=== PATIENT | female | born 1940 | race Caucasian/White ===

== ENCOUNTER 2017-02-23 13:34 | Emergency (ER) | payer OTHER, MEDICARE ==
[~2017-02-23] VITALS: Ht 160 cm; Wt 68.0 kg
[2017-02-23] MEDS ORDERED: PRILOSEC 20 MG20 MG PO (13:50)
[2017-02-23] MEDS ORDERED: ASPIR 8181 MG PO (13:50)
[2017-02-23] MEDS ORDERED: TUMS PO (13:50)
[2017-02-23 14:00] LABS: URINE BILIRUBIN NEGATIVE (Negative); URINE BLOOD 2+ (Negative); URINE COLOR YELLOW; URINE GLUCOSE-RANDOM* NEGATIVE (Negative); URINE KETONES NEGATIVE (Negative); URINE LEUKOCYTES-REFLEX 2+ (Negative); URINE PROTEIN (DIPSTICK) TRACE (Negative); URINE SPECIFIC GRAVITY 1.025 (1.003-1.035); URINE UROBILINOGEN 0.2 E.U./dl (0.2-1.0)
[2017-02-23 14:09] LABS: CASTS None Seen /LPF (None Seen); CRYSTALS None Seen /LPF (None Seen); URINE WBC-REFLEX >25 Many /HPF (0-5)
[2017-02-23 14:10] LABS: SQUAMOUS 0-3 Few /LPF (0-3)
[2017-02-23 14:11] LABS: URINE RBC None Seen /HPF (0-2)
[2017-02-23] MEDS ORDERED: PHENAZOPYRIDIN200 M2 PO (14:29)
[2017-02-23] MEDS ORDERED: BACTRIM DS TAB1 EACH PO (14:29)
[2017-02-23 14:44] VITALS: BP 140/68
== END 2017-02-23 14:55 | disposition home or self-care (01) ==
LOC: ER 13:34
PROVIDERS: Emergency Medicine
DX: N39.0 Urinary tract infection, site not specified (principal); Z90.710 Acquired absence of both cervix and uterus; Z88.0 Allergy status to penicillin; Z88.6 Allergy status to analgesic agent

== ENCOUNTER 2017-03-19 07:05 | Emergency (ER) | payer OTHER, MEDICARE ==
[~2017-03-19] VITALS: Ht 160 cm; Wt 63.5 kg
--- NOTE | ~2017-03-19 | EKG ---
[place] [address] [facility] [place] [address] ELECTROCARDIOGRAM REPORT Name: EL LAZO [facility] [id number] Admission: 03/19/17 Attend Phys: Discharge: Date of : 36 Report #: [id number] THIS REPORT FOR: //name// [facility] ED Test Date: 2017-03-19 Test Time: 07:36:48 Pat Name: EL LAZO Department: Room: Gender: F Rn Manager: norris blanchard : 1940 Requested By: Massiel Amaro Order Number: [id number] MD: Wilmar Zavala Measurements Intervals [place] Rate: 66 P: 35 DC: 124 QRS: 21 QRSD: 95 T: 7 QT: 403 QTc: 423 Interpretive Statements Sinus rhythm No significant abnormality No previous ECG available for comparison Electronically Signed On 03-19-2017 10:14:48 CDT by Wilmar Zavala [email or web address] <ELECTRONICALLY SIGNED> By: Wilmar Zavala MD, [facility] 03/19/17 1014 [id number] Wilmar Zavala MD, FACC /EPI
[~2017-03-19 07:05] MED LIST: ASPIR 8181 MG PO; BACTRIM DS TAB1 EACH PO; PHENAZOPYRIDIN200 M2 PO; PRILOSEC 20 MG20 MG PO; TUMS PO
[2017-03-19 08:02] LABS: EOSINOPHILS 1.6 % (0.0-3.0); HEMATOCRIT 37.9 % (37.0-47.0); HEMOGLOBIN 12.6 gm/dL (12.0-15.0); LYMPHOCYTES 26.7 % (24.0-44.0); MCH 29.1 pg (26.0-34.0); MCHC 33.3 g/dL (28.0-37.0); MCV 87.5 fL (80.0-100.0); MONOCYTES 6.5 % (1.0-8.0); PLATELET COUNT 217 thou/uL (150-400); POLYS 64.2 % (36.0-66.0); RBC 4.33 mil/uL (4.20-5.00); WBC 6.3 thou/uL (4.0-11.0)
[2017-03-19 08:03] LABS: MANUAL DIFF NO
[2017-03-19 08:07] LABS: CALCIUM 9.1 mg/dL (8.5-10.1); CREATININE 0.9 mg/dL (0.6-1.0); POTASSIUM 3.5 mmol/L (3.5-5.1)
[2017-03-19 08:11] LABS: ALBUMIN 3.5 g/dL (3.4-5.0); DIRECT BILIRUBIN 0.1 mg/dL (<0.1-0.3); TOTAL BILIRUBIN 0.5 mg/dL (<0.1-1.0); TOTAL PROTEIN 6.9 g/dL (6.4-8.2)
[2017-03-19 09:37] LABS: URINE BILIRUBIN NEGATIVE (Negative); URINE BLOOD NEGATIVE (Negative); URINE COLOR YELLOW; URINE GLUCOSE-RANDOM* NEGATIVE (Negative); URINE KETONES NEGATIVE (Negative); URINE LEUKOCYTES-REFLEX NEGATIVE (Negative); URINE PROTEIN (DIPSTICK) NEGATIVE (Negative); URINE UROBILINOGEN 0.2 E.U./dl (0.2-1.0)
[2017-03-19] MEDS ORDERED: VALIUM2 MG PO (10:11)
[2017-03-19] MEDS ORDERED: MOBIC7.5 M1 PO (10:11)
[2017-03-19 10:46] VITALS: BP 172/68
== END 2017-03-19 10:47 | disposition home or self-care (01) ==
LOC: ER 07:05
PROVIDERS: Emergency Medicine
DX: M54.5 Low back pain (principal); Z90.710 Acquired absence of both cervix and uterus; Z90.721 Acquired absence of ovaries, unilateral; Z98.890 Other specified postprocedural states; Z88.0 Allergy status to penicillin; Z88.8 Allergy status to other drugs, medicaments and biological substances

== ENCOUNTER 2017-09-26 15:32 | Emergency (ER) | payer OTHER, MEDICARE ==
[~2017-09-26] VITALS: Ht 157.5 cm; Wt 68.0 kg
[~2017-09-26 15:32] MED LIST changes: +MOBIC7.5 M1 PO; +VALIUM2 MG PO
[2017-09-26] MEDS ORDERED: PROBIOTIC1 EAC1 PO (15:48)
[2017-09-26 16:05] LABS: HEMATOCRIT 39.6 % (37.0-47.0); HEMOGLOBIN 13.2 gm/dL (12.0-15.0); MCH 29.8 pg (26.0-34.0); MCHC 33.4 g/dL (28.0-37.0); MCV 89.4 fL (80.0-100.0); PLATELET COUNT 234 thou/uL (150-400); RBC 4.42 mil/uL (4.20-5.00); RDW 13.9 % (10.5-14.5); WBC 9.4 thou/uL (4.0-11.0)
[2017-09-26 16:06] LABS: MANUAL DIFF YES
[2017-09-26 16:13] LABS: CALCIUM 9.3 mg/dL (8.5-10.1); CREATININE 0.9 mg/dL (0.6-1.0); POTASSIUM 3.7 mmol/L (3.5-5.1)
[2017-09-26 16:19] LABS: DIRECT BILIRUBIN 0.1 mg/dL (<0.1-0.3); TOTAL BILIRUBIN 0.5 mg/dL (<0.1-1.0); TOTAL PROTEIN 7.3 g/dL (6.4-8.2)
[2017-09-26 16:21] LABS: ABSOLUTE NEUTROPHILS 8.4 thou/uL (1.4-8.2); TOTAL CELL COUNT 100
[2017-09-26] MEDS ORDERED: ZOFRAN ODT4 MG PO (16:38)
[2017-09-26] MEDS ORDERED: PHENERGAN 25 MG25 M1 PO (16:38)
[2017-09-26 17:03] VITALS: BP 148/72
== END 2017-09-26 17:05 | disposition home or self-care (01) ==
LOC: ER 15:32
PROVIDERS: Emergency Medicine
DX: E86.0 Dehydration (principal); B34.9 Viral infection, unspecified; Z90.710 Acquired absence of both cervix and uterus; Z90.721 Acquired absence of ovaries, unilateral; Z88.6 Allergy status to analgesic agent; Z88.0 Allergy status to penicillin